=== PATIENT | female | born 1985 | race African-American/Black ===

== ENCOUNTER 2017-07-14 14:16 | Emergency (ER) | payer OTHER ==
[~2017-07-14] VITALS: Ht 160 cm; Wt 90.7 kg
[2017-07-14 15:30] LABS: HEMATOCRIT 41.8 % (37.0-47.0); HEMOGLOBIN 13.8 gm/dL (12.0-15.0); MCH 29.3 pg (26.0-34.0); MCV 88.9 fL (80.0-100.0); PLATELET COUNT 199 thou/uL (150-400); WBC 2.2 thou/uL (4.0-11.0)
[2017-07-14 15:38] LABS: CALCIUM 8.6 mg/dL (8.5-10.1); CREATININE 1.1 mg/dL (0.6-1.0); POTASSIUM 3.6 mmol/L (3.5-5.1)
[2017-07-14 15:43] LABS: ALBUMIN 3.4 g/dL (3.4-5.0); TOTAL BILIRUBIN 0.3 mg/dL (<0.1-1.0); TOTAL PROTEIN 7.4 g/dL (6.4-8.2)
[2017-07-14 15:44] LABS: URINE BLOOD 2+ (Negative); URINE CLARITY CLEAR; URINE COLOR YELLOW; URINE GLUCOSE-RANDOM* NEGATIVE (Negative); URINE KETONES 1+ (Negative); URINE LEUKOCYTES-REFLEX NEGATIVE (Negative); URINE NITRITE-REFLEX NEGATIVE (Negative); URINE PROTEIN (DIPSTICK) TRACE (Negative); URINE UROBILINOGEN 0.2 E.U./dl (0.2-1.0)
[2017-07-14 15:48] LABS: URINE BILIRUBIN NEGATIVE (Negative)
[2017-07-14 15:49] LABS: BACTERIA-REFLEX 1-9 Few /HPF (None Seen); CASTS None Seen /LPF (None Seen); CRYSTALS None Seen /LPF (None Seen); SQUAMOUS 0-3 Few /LPF (0-3); URINE RBC 3-10 Few /HPF (0-2); URINE WBC-REFLEX 0-5 Rare /HPF (0-5)
[2017-07-14 16:33] LABS: ABSOLUTE NEUTROPHILS 1.4 thou/uL (1.4-8.2); ATYPICAL LYMPHS 1 %
[2017-07-14] MEDS ORDERED: BUTALB-APAP-CA1 EACH PO (16:39)
[2017-07-14] MEDS ORDERED: ZOFRAN ODT8 MG PO (16:52)
[2017-07-14] MEDS ORDERED: DOXYCYCLINE 10100 MG PO (16:52)
[2017-07-14] MEDS ORDERED: OSELB75 PO (17:00)
== END 2017-07-14 17:36 | disposition home or self-care (01) ==
LOC: EDBD 14:16 → ER 14:16
PROVIDERS: Emergency Medicine
DX: J18.9 Pneumonia, unspecified organism (principal); R19.7 Diarrhea, unspecified; G44.209 Tension-type headache, unspecified, not intractable; D72.819 Decreased white blood cell count, unspecified; Z88.0 Allergy status to penicillin